=== PATIENT | male | born 1985 | race Caucasian/White ===

== ENCOUNTER 2016-04-29 13:11 | Observation (INO) | payer OTHER ==
--- NOTE | 2016-04-29 13:38 | CPEKG ---
Heart Rate: 71 RR Interval: 845 P-R Interval: 156 QRSD Interval: 90 QT Interval: 396 QTC Interval: 431 P [place]: 37 QRS [place]: 22 T Wave [place]: 8 EKG Severity - NORMAL ECG - EKG Impression: SINUS RHYTHM Electronically Signed By: Swati Curtis 29-Apr-2016 14:59:13
[2016-04-29 13:56] LABS: HEMOGLOBIN 16.3 g/dL (13.7-17.5); RED BLOOD CELL COUNT 5.42 10^6/uL (4.40-6.38)
[2016-04-29 13:57] LABS: % IMMATURE GRANULYOCYTES 0.2 % (0.0-1.1); ABSOLUTE IMMATURE GRANULOCYTES 0.01 10^3/uL (0.00-0.10); ADD DIFF? NO; ADD MORPH? NO; ADD SCAN? NO; ATYPICAL LYMPHOCYTE FLAG 0 (0-99); FRAGMENT RBC FLAG 0 (0-99); LEFT SHIFT FLG 0 (0-99); LIPEMIA HEMOLYSIS FLAG 90 (0-99); MEAN CELL HEMOGLOBIN 30.1 pg (27.9-34.1); MEAN CELL HEMOGLOBIN CONCENTR. 34.7 g/dL (32.4-36.7); MEAN CELL VOLUME 86.7 fL (81.5-99.8); MEAN PLATELET VOLUME 11.1 fL (8.7-11.7); PLATELET CLUMPS FLAG 0 (0-99); PLATELET COUNT 212 10^3/uL (150-400); RED CELL DISTRIBUTION WIDTH 12.9 % (11.5-15.2)
[2016-04-29] MEDS ORDERED: ASPIRIN 325 MG TAB PO ONE (13:57)
[2016-04-29] MEDS ORDERED: NITROGLYCERIN 0.4 MG BTL SL ONE (13:57)
--- NOTE | 2016-04-29 13:57 | EDPHY ---
H & P Stated Complaint: CHEST PRESSURE FOR SEVERAL WEEKS Time Seen by Provider: 04/29/16 13:39 HPI/ROS: Chief complaint: Chest pain HPI: 30-year-old male presenting with intermittent episodes of chest pain for the last 3 weeks. He is describing discomfort in his left chest feels deep to his pectoralis muscle. No injuries. Described as a burning dullness. No associated shortness of breath. At worst it is a 5/10. Right now is about a 3/ 10. Patient had an episode last night about 10 o'clock. Took some ibuprofen with the sleeve by about midnight. Woke this morning was feeling fine but had the onset of the discomfort began around 12 noon. No fevers or chills. No cough. No dyspnea on exertion. No recent illness. Does have a family history of coronary disease. Grandfather had MN, uncles had a coronary artery bypass graft. No known coronary disease in first-degree relatives. He does not smoke. Drinks rare alcohol. No other recreational drug use. He is active [employer] right now. No new stressors. ROS: 10 point Review of Systems is negative except as noted in the HPI. Physical exam: Gen: Awake, Alert, No Distress HEENT: Nose: no rhinorrhea Eyes: PERRLA, EOMI Mouth: Moist mucosa Neck: Supple, no JVD Chest: nontender, lungs clear to auscultation Heart: S1, S2 normal, no murmur Abd: Soft, non-tender, no guarding Back: no CVA tenderness, no midline tenderness Ext: no edema, non-tender Skin: no rash Neuro: CN II-XII intact, Sensation grossly intact, Strength 5/5 in bilateral upper and lower extremities - Personal History Current Tetanus Diphtheria and Acellular Pertussis (TDAP): Yes Tetanus Vaccine Date: < 10 YEARS - Medical/Surgical History Hx Asthma: No Hx Chronic Respiratory Disease: No Hx Diabetes: No Hx Cardiac Disease: No Hx Renal Disease: No Hx Cirrhosis: No Hx Alcoholism: No Hx HIV/AIDS: No Hx Splenectomy or Spleen Trauma: No Other PMH: HERNIA SURGERY X 2 - Social History Smoking Status: Never smoked Constitutional: Initial Vital Signs Temperature (C) 36.9 C 04/29/16 13:24 Heart Rate 69 04/29/16 13:24 Respiratory Rate 16 04/29/16 13:24 Blood Pressure 128/59 H 04/29/16 13:24 O2 Sat (%) 95 04/29/16 13:24 O2 Delivery Mode Room Air Allergies/Adverse Reactions: No Known Allergies Allergy (Unverified 04/29/16 13:29) Home Medications: Medication Instructions Recorded NK [No Known Home Meds] 04/29/16 Medical Decision Making - Diagnostics EKG Interpretation: EC sinus rhythm with a rate of 71. Normal axis. Normal intervals. No acute ST or T-wave changes. ED Course/Re-evaluation: Troponin is negative. Patient complete pain relief after 1 nitro. Was also given aspirin here. He has a family history of coronary disease. Onset of pain was at 12 noon today. Have discussed with , hospitalist. Will admit to the [facility] for cardiac rule out. - Data Points Laboratory Results: Laboratory Results 04/29/16 13:45 04/29/16 13:45 04/29/16 13:45 WBC 6.27 10^3/uL (3.80-9.50) RBC 5.42 10^6/uL (4.40-6.38) Hgb 16.3 g/dL (13.7-17.5) Hct 47.0 % (40.0-51.0) MCV 86.7 fL (81.5-99.8) MCH 30.1 pg (27.9-34.1) MCHC 34.7 g/dL (32.4-36.7) RDW 12.9 % (11.5-15.2) Plt Count 212 10^3/uL (150-400) MPV 11.1 fL (8.7-11.7) Neut % (Auto) 71.0 % (39.3-74.2) Lymph % (Auto) 22.5 % (15.0-45.0) [place] % (Auto) 5.3 % (4.5-13.0) Eos % (Auto) 0.5 L % (0.6-7.6) Baso % (Auto) 0.5 % (0.3-1.7) Nucleat RBC Rel Count 0.0 % (0.0-0.2) Absolute Neuts (auto) 4.46 10^3/uL (1.70-6.50) Absolute Lymphs (auto) 1.41 10^3/uL (1.00-3.00) Absolute Monos (auto) 0.33 10^3/uL (0.30-0.80) Absolute Eos (auto) 0.03 10^3/uL (0.03-0.40) Absolute Basos (auto) 0.03 10^3/uL (0.02-0.10) Absolute Nucleated RBC 0.00 10^3/uL (0-0.01) Immature Gran % 0.2 % (0.0-1.1) Immature Gran # 0.01 10^3/uL (0.00-0.10) Sodium 141 mEq/L (134-144) Potassium 4.7 mEq/L (3.5-5.2) Chloride 104 mEq/L (97-110) Carbon Dioxide 27 mEq/l (22-31) Anion Gap 10 mEq/L (8-16) BUN 17 mg/dL (7-23) Creatinine 1.1 mg/dL (0.7-1.3) Estimated GFR > 60 Glucose 95 mg/dL (70-100) Calcium 9.6 mg/dL (8.5-10.4) Troponin I < 0.012 ng/mL (0-0.034) Medications Given: Discontinued Medications Aspirin (Aspirin) 325 mg PO EDNOW ONE Stop: 04/29/16 13:58 Last Admin: 04/29/16 14:10 Dose: 325 mg Nitroglycerin (Nitrostat) 0.4 mg SL EDNOW ONE Stop: 04/29/16 13:58 Last Admin: 04/29/16 14:10 Dose: 0.4 mg Departure - Departure Disposition: [facility] Inpatient Acute Clinical Impression: Chest pain Condition: Good
[2016-04-29 14:20] LABS: ANION GAP 10 mEq/L (8-16); CALCIUM 9.6 mg/dL (8.5-10.4); CARBON DIOXIDE 27 mEq/l (22-31); CHLORIDE 104 mEq/L (97-110); CREATININE 1.1 mg/dL (0.7-1.3); GLOMERULAR FILTRATION RATE > 60; GLUCOSE 95 mg/dL (70-100); POTASSIUM 4.7 mEq/L (3.5-5.2); SODIUM 141 mEq/L (134-144)
[2016-04-29 14:29] LABS: TROPONIN I < 0.012 ng/mL (0-0.034)
[2016-04-29] MEDS ORDERED: NITROGLYCERIN 0.4 MG BTL SL PRN (14:38)
--- NOTE | 2016-04-29 15:07 | DX ---
Chest, Two Views at 1334 hours History: Chest pain Comparison: None. Findings: Cardiac silhouette is within normal range. No pneumonia, congestive heart failure, pleural effusion, or pneumothorax. Impression: No acute pulmonary disease.
[2016-04-29] MEDS ORDERED: ONDANSETRON 4 MG/2 ML VIAL IVP PRN (15:18)
--- NOTE | 2016-04-29 16:05 | GHP ---
[f rep st] HISTORY AND PHYSICAL DATE OF ADMISSION: 04/29/2016 CHIEF COMPLAINT: Atypical chest pain. HISTORY OF PRESENT ILLNESS: The patient is a 30-year-old male with no past medical history, presenting with intermittent chest pain for the past 2-1/2 to 3 weeks. He states that it is left-sided under his pec muscle. Feels like a burning cold pressure-like sensation. It can last anywhere from 10-30 minutes and it does not occur with exertion. He denies any associated symptoms including shortness of breath, radiation, nausea, diaphoresis, numbness in hands or fingers. He ran on Friday without any symptoms, but ran at a slower pace; feeling a little more fatigued lately. He had pain last night while lying in bed, at 10 p.m., could not sleep, so approximately 11:30 he took 3 Advil and went to bed. He awoke again with the pain. The worst it gets is 5/ 10. He received nitroglycerin in the emergency room that gave some relief as well as a headache. He denies pain with deep inspiration or a hard time breathing. No PND, no edema or orthopnea. No fevers, chills, or sweats. No cough. No nausea, vomiting, diarrhea. No sore throat. No recent travel. The patient exercises daily, usually doing double workouts, including cardio and weight training. He has not had any chest pain or shortness of breath with this activity. REVIEW OF SYSTEMS: I completed a 10-point review of systems, negative except as noted in HPI. PAST MEDICAL HISTORY: None. SURGICAL HISTORY: Bilateral inguinal hernia. SOCIAL HISTORY: Lives in [place] with his . He is an active [employer]. No tobacco, occasional alcohol, no drugs. FAMILY HISTORY: Mother with a pacemaker and hypertension. Father with diabetes. Paternal grandpa with an HI at age 51. Paternal uncle with CABG. MEDICATIONS: Advil p.r.n. ALLERGIES: None. PHYSICAL EXAMINATION: VITAL SIGNS: Temperature 36.9, blood pressure 146/89, heart rate 60s, respirations 16, 97% on room air. GENERAL: The patient is lying in bed, in no acute distress. HEENT: PERRLA. EOMI. Oropharynx clear. CV: Regular rate and rhythm. No murmurs, gallops, or rubs. No reproducible pain. No lower extremity edema. LUNGS: Clear to auscultation bilaterally. ABDOMEN: Soft, nontender, nondistended. Positive bowel sounds. : No suprapubic tenderness. No [place]ing. MUSCULOSKELETAL: 5/5 upper and lower extremity strength. NEURO: 2 through 12 intact. PSYCH: Alert and oriented x3. LABORATORY DATA: WBC 6.2, hemoglobin 16, hematocrit 47, platelets 212. Sodium 141, potassium 4.7, chloride 104, carbon dioxide 26, BUN 17, creatinine 1.1, glucose 95. Troponin less than 0.12. Chest x-ray personally reviewed by me: No infiltrate or effusion. EKG personally reviewed by me. Heart rate 70s, normal sinus rhythm. There is ST flattening in lead 3. T-wave flattening in V2 through V4. ASSESSMENT/PLAN: 1. Atypical chest pain: Differential includes acute coronary syndrome versus pulmonary embolism, versus musculoskeletal versus gastroesophageal reflux disease. Initial troponin and EKG are negative for ischemia. I will repeat both these. Patient will be monitored on telemetry. D-dimer is pending. Patient does not have personal risk factors. He does have a family history. If troponin is negative later this evening, I think it is reasonable for patient to follow up with his PCP for an outpatient stress test, as the patient is not having pain with exertion. The patient would like to be home given the fact tomorrow is his anniversary and Crump's Day. Check A1c and lipids. 2. Headache secondary to nitroglycerin. 3. Diet regular. 4. Deep venous thrombosis prophylaxis. Low risk, ambulatory. 5. Increased fatigue: We will check a TSH. DISPOSITION: Patient warrants observation admission given atypical chest pain, warranting telemetry and serial EKG and troponin. /[id number]/MODL MTDD
[2016-04-29 16:46] LABS: HEMOGLOBIN A1C 5.1 % (4.0-6.0)
[2016-04-29] MEDS ORDERED: IOPAMIDOL (ISOVUE 370) 100 ML BTL IV ONE (18:46)
--- NOTE | 2016-04-29 20:33 | CT ---
CT Angiogram of the Chest Clinical Indications: Intermittent pain on the left pectoralis muscle for 3 weeks. History of hernia surgery. Nonsmoker. Technique: 1.25 mm thin axial images are performed from lung apex through base during intravenous contrast injection of 90 mL of Isovue-370. Coronal and parasagittal reformatted i mages are reviewed on PACS workstation. Dose reduction techniques were utilized. Comparison: None. Findings: CT Angiogram of the Chest: There is no evidence for acute or chronic pulmonary embolic disease. Central pulmonary vasculature de monstrates normal contrast enhancement. No masses. CT Scan Chest: Lungs are clear. Heart and mediastinum are normal. There is no evidence for nodule or consolidation. No effusion. Visualized upper abdomen is normal. No adenopathy. Impression: 1. Normal CT scan of the chest 2. No evidence for pulmonary embolic disease.
--- NOTE | 2016-04-29 22:39 | CPEKG ---
Heart Rate: 48 RR Interval: 1250 P-R Interval: 168 QRSD Interval: 90 QT Interval: 432 QTC Interval: 386 P [place]: 45 QRS [place]: 42 T Wave [place]: 4 EKG Severity - OTHERWISE NORMAL ECG - EKG Impression: SLOW SINUS ARRHYTHMIA, RATE 40-54 Electronically Signed By: Bobo Bahena 01-May-2016 08:34:08
[2016-04-29 22:43] VITALS: BP 131/68; PULSE 52; RESP 16; TEMP 97.9; O2SAT 96
[2016-04-29] MEDS ORDERED: IBUPROFEN 200 MG TAB PO PRN (22:58)
[2016-04-29] MEDS ORDERED: IBUPROFEN 600 MG TAB PO PRN (23:00)
--- NOTE | 2016-04-30 07:23 | GDS ---
[f rep st] DISCHARGE SUMMARY DISCHARGE DIAGNOSES: 1. Atypical chest pain. 2. Sinus arrhythmia. HISTORY OF PRESENT ILLNESS: Please see initial H and P for full details. Briefly, the patient is a 30-year-old male with no past medical history, presenting with localized left-sided chest pain that feels like a burning cold sensation, that is not associates with exertion. No associated symptoms. ASSESSMENT AND PLAN: 1. Atypical chest pain: Differential ACS versus PE versus musculoskeletal. Troponin and EKG were negative for ischemia. CT was negative for pulmonary embolism. Of note, patient works out 2 times daily without any chest pain or shortness of breath. He does have family history of a coronary disease, but he has no personal risk factors. I gave strict return precautions if has exertional chest pain or shortness of breath. He is to follow up with his primary care physician and consider an outpatient stress test. 2. Sinus arrhythmia: EKG demonstrated sinus arrhythmia. Again, no evidence of ischemia. TSH was normal. DISPOSITION: Patient is stable for discharge. FOLLOWUP: 1. PCP for consideration of outpatient stress test. 2. Return precautions. The patient will return to the PCP or ER if has insertional chest pain, shortness of breath, dizziness. /[id number]/MODL MTDD
== END 2016-04-29 23:05 | disposition home or self-care (01) ==
LOC: F1N 14:58
PROVIDERS: ADMIT Internal Medicine; ATTEND Internal Medicine
DX: R07.89 Other chest pain (principal)
CPT/HCPCS: 71020; G0378; Q9967